=== PATIENT | female | born 1985 | race American Indian/Alaskan Native ===

== ENCOUNTER 2020-05-18 12:49 | Emergency (ER) | payer MEDICAID ==
--- NOTE | 2020-05-18 16:40 | Emergency Department Report ---
ED Female HPI - General Chief complaint: Urogenital-Female Stated complaint: YEAST INFECTION Time Seen by Provider: 05/18/20 13:32 Source: patient Mode of arrival: Ambulatory Limitations: No Limitations - History of Present Illness Initial comments: 35-year-old female presents to the emergency department with complaint that she may have a yeast infection. She states she has not had burning but has had foul-smelling discharge. She reports that is white thick. She denies any fevers chills or abdominal pain. She denies dysuria. - Related Data Previous Rx's Medication Instructions Recorded Last Taken Type metroNIDAZOLE [Flagyl TAB] 500 mg PO Q12HR 7 Days #14 tab 05/18/20 Unknown Rx Allergies Allergy/AdvReac Type Severity Reaction Status Date / Time No Known Allergies Allergy Unverified 05/18/20 12:54 ED Review of Systems ROS: Stated complaint: YEAST INFECTION Other details as noted in HPI Constitutional: denies: chills, fever Eyes: denies: eye discharge ENT: denies: ear pain, throat pain Respiratory: denies: cough Cardiovascular: denies: chest pain Endocrine: no symptoms reported Gastrointestinal: denies: abdominal pain, nausea, vomiting, diarrhea Genitourinary: discharge. denies: dysuria Musculoskeletal: denies: back pain Skin: denies: rash Neurological: denies: headache, weakness Psychiatric: denies: anxiety, depression Hematological/Lymphatic: denies: easy bleeding ED Past Medical Hx - Past Medical History Previous Medical History?: No - Surgical History Past Surgical History?: No - Medications Home Medications: Home Medications Medication Instructions Recorded Confirmed Last Taken Type metroNIDAZOLE [Flagyl TAB] 500 mg PO Q12HR 7 Days #14 tab 05/18/20 Unknown Rx ED Physical Exam - General Limitations: No Limitations General appearance: alert, in no apparent distress - Head Head exam: Present: atraumatic, normocephalic - Eye Eye exam: Present: normal appearance Pupils: Present: normal accommodation - ENT ENT exam: Present: normal exam - Neck Neck exam: Present: normal inspection - Respiratory Respiratory exam: Present: normal lung sounds bilaterally. Absent: respiratory distress, chest wall tenderness - Cardiovascular Cardiovascular Exam: Present: regular rate, normal rhythm, normal heart sounds - GI/Abdominal GI/Abdominal exam: Present: soft. Absent: distended, tenderness - Rectal Rectal exam: Present: deferred - External exam: Present: normal external exam Speculum exam: Present: vaginal discharge (Brownish, appears to be physiologic), vaginal bleeding - Extremities Exam Extremities exam: Present: normal inspection - Back Exam Back exam: Present: normal inspection - Neurological Exam Neurological exam: Present: alert, oriented X3 - Psychiatric Psychiatric exam: Present: normal affect - Skin Skin exam: Present: warm, dry, intact ED Course - Reevaluation(s) Reevaluation #1: 05/18/20 18:24 Pelvic exam showed some brownish discharge but patient had no tenderness. There was no purulent discharge suggestive of an STI. Wet prep does show some clue cells so we will treat for bacterial vaginosis and patient is to follow-up with primary care and [facility]. ED Medical Decision Making - Medical Decision Making 35-year-old female here with vaginal discharge. Concern for STI. She also completed considered that she could have a yeast infection. Plan for pelvic exam. Patient has no abdominal tenderness. I think that peptic inflammatory disease is unlikely. Pending patient exam will likely treat for STIs and discharge home. Critical care attestation.: If time is entered above; I have spent that time in minutes in the direct care of this critically ill patient, excluding procedure time. ED Disposition Clinical Impression: Vaginal discharge, Bacterial vaginosis Disposition: - TO HOME OR SELFCARE Is pt being admited?: No Does the pt Need Aspirin: No Condition: Stable Instructions: Bacterial Vaginosis (ED), Bacterial Vaginosis, [id number] Prescriptions: metroNIDAZOLE [Flagyl TAB] 500 mg PO Q12HR 7 Days #14 tab Referrals: PRIMARY CARE, [Primary Care Provider] - 3-5 Days Forms: STI Treatment and Prevention
[2020-05-18 16:57] LABS: Bilirubin,Urine NEG (Negative); Blood,Urine NEG (Negative); Color,Urine Yellow (Yellow); HCG Qualitative,Urine Negative (Negative); Mucus,Urine FEW /HPF; Protein,Urine <15 mg/dL mg/dL (Negative); Urobilinogen,Urine < 2.0 mg/dL (<2.0)
[2020-05-18 18:37] VITALS: BP 112/49
== END 2020-05-18 18:38 | disposition home or self-care (01) ==
LOC: ED 12:49
DX: N76.0 Acute vaginitis (principal); B96.89 Other specified bacterial agents as the cause of diseases classified elsewhere; Z79.899 Other long term (current) drug therapy
CPT/HCPCS: 81001; 81025; 87210; 87591

== ENCOUNTER 2020-09-13 07:41 | Emergency (ER) | payer SELFPAY ==
[2020-09-13 08:54] VITALS: BP 125/68
[2020-09-13] MEDS ORDERED: ACETAMINOPHEN 500 MG TAB PO ONE (09:03)
[2020-09-13] MEDS ORDERED: DICYCLOMINE 20 MG TAB PO ONE (09:04)
--- NOTE | 2020-09-13 09:07 | Emergency Department Report ---
ED General Adult HPI - General Chief complaint: Abdominal Pain Stated complaint: ABDOMINAL PAIN Time Seen by Provider: 09/13/20 09:01 Source: patient Mode of arrival: Ambulatory Limitations: No Limitations - History of Present Illness Initial comments: 35 y/o female pt w/ hx of tubal ligation and x3 presents to the emergency department with complaints of periumbilical abdominal pain starting yesterday. Patient states she has experienced similar abdominal pain on multiple occasions since her tubal ligation several years ago. Last bowel movement was 3 days ago. Patient states she has difficulty eating and sitting still because of the pain. Patient endorses alcohol use. LMP was four days ago. Denies fever, chills, nausea, vomiting, diarrhea, abnormal vaginal bleeding, rectal bleeding. Denies other complaints at this time. - Related Data Previous Rx's Medication Instructions Recorded Last Taken Type metroNIDAZOLE [Flagyl TAB] 500 mg PO Q12HR 7 Days #14 tab 05/18/20 Unknown Rx Dicyclomine [Bentyl] 20 mg PO QID #30 tablet 09/13/20 Unknown Rx Allergies Allergy/AdvReac Type Severity Reaction Status Date / Time No Known Allergies Allergy Unverified 05/18/20 12:54 ED Review of Systems ROS: Stated complaint: ABDOMINAL PAIN Other details as noted in HPI Other: GENERAL: Negative for fever, chills, weight change, anorexia, fatigue. ENT: Negative for ear pain, difficulty hearing, sore throat, nasal congestion, epistaxis. CARDIOVASCULAR: Negative for chest pain, palpitations, lower extremity swelling. PULMONARY: Negative for cough, dyspnea, wheezing, orthopnea, cyanosis. GASTROINTESTINAL: Positive for abdominal pain. MUSCULOSKELETAL: Negative for joint pain, joint swelling, myalgias, back pain, neck pain. NEUROLOGICAL: Negative for headache, seizure, syncope, paresthesias, weakness. INTEGUMENTARY: Negative for erythema, rash, diaphoresis, laceration, ecchymosis. HEMATOLOGICAL: Negative for hemoptysis, hematemesis, hematochezia, hematuria. PSYCHIATRIC: Negative for hallucinations, suicidal ideation, homicidal ideation, anxiety, depression. ED Past Medical Hx - Past Medical History Previous Medical History?: No - Surgical History Past Surgical History?: Yes Additional Surgical History: 3 , TL - Medications Home Medications: Home Medications Medication Instructions Recorded Confirmed Last Taken Type metroNIDAZOLE [Flagyl TAB] 500 mg PO Q12HR 7 Days #14 tab 05/18/20 Unknown Rx Dicyclomine [Bentyl] 20 mg PO QID #30 tablet 09/13/20 Unknown Rx ED Physical Exam - General Limitations: No Limitations - Other Other exam information: General: Awake and alert. No acute distress. Head: Atraumatic, normocephalic. Eyes: EOMI. Pupils are equal and round. Normal sclera and conjunctiva. ENT: Oral mucosa is moist. Normal pharyngeal exam. Neck: Supple. No lymphadenopathy. Pulmonary: No respiratory distress. Clear to auscultation bilaterally. Cardiac: Regular rate and rhythm. Pulses are palpable and equal bilaterally. No lower extremity cyanosis or edema. Skin: Warm and dry. No rashes. Abdomen: Soft, non-protuberant. Diffuse abdominal tenderness without guarding, rigidity, or rebound. Bowel sounds are normal. No organomegaly or masses noted. Tenderness does not localize to McBurney's point. Saini sign is negative. Back: Normal alignment. No CVA tenderness. Extremities: Symmetrical. Full range of motion intact. Neurological: Alert and oriented, appropriately interactive, no focal deficits. Psych: Cooperative. Appropriate mood and affect. Speech is evenly metered. Thoughts are logically construed. ED Course Vital Signs 09/13/20 08:47 Temperature 98.3 F Pulse Rate 65 Respiratory 18 Rate Blood Pressure 125/68 O2 Sat by Pulse 100 Oximetry ED Medical Decision Making - Lab Data Result diagrams: 09/13/20 09:26 09/13/20 09:26 - Medical Decision Making Differential diagnosis including but not limited to: appendicitis, cholecystitis, pancreatitis, , pyelonephritis, ovarian cyst/torsion, urinary tract infection, peptic ulcer disease On reevaluation, patient remains stable. Repeat abdominal exam is benign. She is tolerating oral intake without difficulty. No fever or vomiting in the emergency department. Patient has been very ambulatory over the course of her emergency department evaluation. Please see nursing note for details. Her vital signs are stable and her labs are unremarkable. She has been experiencing similar pain since her tubal ligation several years ago. There are no signs of peritonitis on examination. There is no clinical indication for further diagnostic work-up on an emergent basis at this time. Patient will be discharged home with appropriate analgesics and referral to local primary care provider for close outpatient follow-up. Patient expressed understanding and is agreeable to plan of care. Strict return precautions provided. Specifically, signs/symptoms of appendicitis warranting return to the emergency department were discussed with the patient, who expressed understanding. Repeat exam is unremarkable and benign. History, exam, diagnostic testing, and current condition do not suggest worrisome pathology to warrant further testing, continued ED treatment, admission, or surgical evaluation at this point. Given the low probability of a significant medical illness, it would be more likely to result in harm than benefit to perform further testing at this stage. Discussed findings, presumptive diagnosis, need for follow-up and specific signs/symptoms that should prompt immediate return to the emergency department. Instructions were explained in detail to the patient in addition to giving written discharge information. Patient expressed understanding and was given the opportunity to ask questions, all of which were satisfactorily answered prior to discharge home. Critical care attestation.: If time is entered above; I have spent that time in minutes in the direct care of this critically ill patient, excluding procedure time. ED Disposition Clinical Impression: Nonspecific abdominal pain Disposition: TO HOME OR SELFCARE Is pt being admited?: No Does the pt Need Aspirin: No Condition: Stable Instructions: Abdominal Pain, Adult, [id number], Abdominal Pain (ED) Additional Instructions: Take Tylenol every 4 hours as needed for pain. Take Bentyl as directed for pain. Rest. Drink plenty of fluids. Follow-up with primary care provider this week. Call Tuesday to schedule an appointment. Return to the emergency department immediately for new or worsening symptoms. Specifically, return to the emergency department immediately for fever, nausea, vomiting, rectal bleeding, worsening abdominal pain, and/or if the pain migrates to the right lower area of your abdomen. Prescriptions: Dicyclomine [Bentyl] 20 mg PO QID #30 tablet Referrals: JEREMY HILL MD [Staff Physician] - 3-5 Days [facility] [Outside] - 3-5 Days [facility] [Outside] - 3-5 Days [facility] [Outside] - 3-5 Days Time of Disposition: 11:07
[2020-09-13 09:59] LABS: Basophils % (Auto) 0.5 % (0.0-1.8); Eosinophils # (Auto) 0.1 K/mm3 (0.0-0.4); Hematocrit 36.2 % (30.3-42.9); Hemoglobin 12.2 gm/dl (10.1-14.3); Lymphocytes # (Auto) 1.9 K/mm3 (1.2-5.4); Lymphocytes % (Auto) 32.9 % (13.4-35.0); Mean Corpuscular HGB Conc 34 % (30-34); Mean Corpuscular Volume 94 fl (79-97); Monocytes # (Auto) 0.5 K/mm3 (0.0-0.8); Monocytes % (Auto) 9.2 % (0.0-7.3); Platelet Count 207 K/mm3 (140-440); Red Blood Count 3.87 M/mm3 (3.65-5.03); Red Cell Distribution Width 13.7 % (13.2-15.2)
[2020-09-13 10:00] LABS: Alanine Aminotransferase 7 units/L (7-56); Albumin 4.2 g/dL (3.9-5); Blood Urea Nitrogen 11 mg/dL (7-17); Calcium 8.6 mg/dL (8.4-10.2); Hemolysis Index 8
[2020-09-13 10:02] LABS: BUN/Creatinine Ratio 18
[2020-09-13 10:33] LABS: Bilirubin,Urine NEG (Negative); Blood,Urine MOD (Negative); Color,Urine Yellow (Yellow); Mucus,Urine 3+ /HPF; Protein,Urine <15 mg/dL mg/dL (Negative); Urobilinogen,Urine < 2.0 mg/dL (<2.0); WBC,Urine < 1.0 /HPF (0.0-6.0)
== END 2020-09-13 11:49 | disposition home or self-care (01) ==
LOC: ED 07:41
DX: R10.33 Periumbilical pain (principal); Z79.899 Other long term (current) drug therapy; Z98.890 Other specified postprocedural states; Z98.51 Tubal ligation status
CPT/HCPCS: 36415; 80053; 81001; 83690; 83735; 84703; 85025

== ENCOUNTER 2021-06-09 16:42 | Emergency (ER) | payer MEDICAID ==
[2021-06-09 18:32] VITALS: BP 105/38
[2021-06-09 19:17] LABS: Basophils % (Auto) 0.8 % (0.0-1.8); Eosinophils # (Auto) 0.1 K/mm3 (0.0-0.4); Eosinophils % (Auto) 1.4 % (0.0-4.3); Hematocrit 35.9 % (30.3-42.9); Hemoglobin 11.8 gm/dl (10.1-14.3); Lymphocytes # (Auto) 2.4 K/mm3 (1.2-5.4); Lymphocytes % (Auto) 40.5 % (13.4-35.0); Mean Corpuscular HGB Conc 33 % (30-34); Mean Corpuscular Volume 93 fl (79-97); Monocytes # (Auto) 0.6 K/mm3 (0.0-0.8); Platelet Count 212 K/mm3 (140-440); Red Blood Count 3.86 M/mm3 (3.65-5.03); Red Cell Distribution Width 13.2 % (13.2-15.2)
[2021-06-09 19:41] LABS: Alanine Aminotransferase 10 units/L (7-56); Albumin 4.5 g/dL (3.9-5); Blood Urea Nitrogen 10 mg/dL (7-17); Calcium 9.4 mg/dL (8.4-10.2); Hemolysis Index 12
[2021-06-09 19:42] LABS: BUN/Creatinine Ratio 17
[2021-06-09 20:49] LABS: Bilirubin,Urine NEG (Negative); Blood,Urine NEG (Negative); Color,Urine Yellow (Yellow); Protein,Urine <15 mg/dL mg/dL (Negative); Urobilinogen,Urine < 2.0 mg/dL (<2.0); WBC,Urine < 1.0 /HPF (0.0-6.0)
[2021-06-09] MEDS ORDERED: ONDANSETRON 4 MG ODT TAB PO ONE (20:55)
[2021-06-09] MEDS ORDERED: DICYCLOMINE 20 MG TAB PO ONE (20:55)
--- NOTE | 2021-06-09 21:01 | Emergency Department Report ---
ED Abdominal Pain HPI - General Chief Complaint: Abdominal Pain Stated Complaint: ABD PAINS Time Seen by Provider: 06/09/21 20:51 Source: patient Mode of arrival: Ambulatory Limitations: No Limitations - History of Present Illness Initial Comments: Patient 36-year-old female who presents for left flank pain radiating to left lower quadrant x5 days. Patient denies fevers or chills patient has no dysuria frequency and urgency. Patient denies vaginal discharge no vaginal bleeding. Last menstrual cycle 1 week ago. Patient notes nausea no vomiting. Patient is tolerating p.o. intake. Patient states she started to have diarrhea this a.m. Patient denies relieving factors. Symptoms are exacerbated by activity and movement. MD Complaint: abdominal pain, flank pain - Related Data Previous Rx's Medication Instructions Recorded Last Taken Type metroNIDAZOLE [Flagyl TAB] 500 mg PO Q12HR 7 Days #14 tab 05/18/20 Unknown Rx Dicyclomine [Bentyl] 20 mg PO QID #30 tablet 09/13/20 Unknown Rx Dicyclomine [Bentyl] 10 mg PO QID PRN #20 capsule 06/09/21 Unknown Rx Naproxen 500 mg PO BID PRN #30 06/09/21 Unknown Rx Ondansetron [Zofran Odt] 4 mg PO Q8HR PRN #12 tab.rapdis 06/09/21 Unknown Rx Allergies Allergy/AdvReac Type Severity Reaction Status Date / Time No Known Allergies Allergy Verified 06/09/21 18:31 ED Review of Systems ROS: Stated complaint: ABD PAINS Other details as noted in HPI Constitutional: denies: chills, fever Eyes: denies: eye pain, eye discharge, vision change ENT: denies: ear pain, throat pain Respiratory: denies: cough, shortness of breath, wheezing Cardiovascular: denies: chest pain, palpitations Endocrine: no symptoms reported Gastrointestinal: abdominal pain, nausea, diarrhea. denies: vomiting, constipation, hematemesis, hematochezia Genitourinary: urgency, dysuria, frequency. denies: hematuria, discharge, abnormal menses Musculoskeletal: back pain (left flank ). denies: joint swelling, arthralgia Skin: denies: rash, lesions Neurological: denies: headache, weakness, paresthesias, vertigo Psychiatric: denies: anxiety, depression Hematological/Lymphatic: as per HPI ED Past Medical Hx - Surgical History Additional Surgical History: 3 , TL - Medications Home Medications: Home Medications Medication Instructions Recorded Confirmed Last Taken Type metroNIDAZOLE [Flagyl TAB] 500 mg PO Q12HR 7 Days #14 tab 05/18/20 Unknown Rx Dicyclomine [Bentyl] 20 mg PO QID #30 tablet 09/13/20 Unknown Rx Dicyclomine [Bentyl] 10 mg PO QID PRN #20 capsule 06/09/21 Unknown Rx Naproxen 500 mg PO BID PRN #30 06/09/21 Unknown Rx Ondansetron [Zofran Odt] 4 mg PO Q8HR PRN #12 tab.rapdis 06/09/21 Unknown Rx ED Physical Exam - General Limitations: No Limitations General appearance: alert, in no apparent distress - Head Head exam: Present: atraumatic, normocephalic - Eye Eye exam: Present: normal appearance, EOMI Pupils: Present: normal accommodation - ENT ENT exam: Present: mucous membranes moist - Neck Neck exam: Present: normal inspection, full ROM. Absent: tenderness - Respiratory Respiratory exam: Present: normal lung sounds bilaterally. Absent: respiratory distress, wheezes, stridor - Cardiovascular Cardiovascular Exam: Present: regular rate, normal rhythm, normal heart sounds. Absent: systolic murmur, diastolic murmur, rubs, gallop - GI/Abdominal GI/Abdominal exam: Present: soft, tenderness (LLQ , L flank ), normal bowel sounds. Absent: distended, guarding, rebound, rigid, bruit, hernia - Rectal Rectal exam: Present: deferred - Extremities Exam Extremities exam: Present: normal inspection, full ROM, normal capillary refill. Absent: tenderness - Back Exam Back exam: Present: normal inspection, full ROM, CVA tenderness (L). Absent: CVA tenderness (R) - Neurological Exam Neurological exam: Present: alert, oriented X3, CN II-XII intact, normal gait - Psychiatric Psychiatric exam: Present: normal affect, normal mood - Skin Skin exam: Present: warm, dry, intact, normal color. Absent: rash ED Course Vital Signs 06/09/21 18:28 Temperature 98.3 F Pulse Rate 71 Respiratory 14 Rate Blood Pressure 105/38 [Right] O2 Sat by Pulse 100 Oximetry ED Medical Decision Making - Lab Data Result diagrams: 06/09/21 18:55 06/09/21 18:55 Labs 06/09/21 06/09/21 06/09/21 18:55 18:55 18:55 WBC 5.9 RBC 3.86 Hgb 11.8 Hct 35.9 MCV 93 MCH 31 MCHC 33 RDW 13.2 Plt Count 212 Lymph % (Auto) 40.5 H [place] % (Auto) 10.0 H Eos % (Auto) 1.4 Baso % (Auto) 0.8 Lymph # (Auto) 2.4 [place] # (Auto) 0.6 Eos # (Auto) 0.1 Baso # (Auto) 0.0 Seg Neutrophils % 47.3 Seg Neutrophils # 2.8 Sodium 140 Potassium 4.9 Chloride 102.9 Carbon Dioxide 24 Anion Gap 18 BUN 10 Creatinine 0.6 Estimated GFR > 60 BUN/Creatinine Ratio 17 Glucose 80 Calcium 9.4 Total Bilirubin 0.30 AST 14 ALT 10 Alkaline Phosphatase 81 Total Protein 7.8 Albumin 4.5 Albumin/Globulin Ratio 1.4 Lipase 19 HCG, Qual Negative Urine Color Urine Turbidity Urine pH Ur Specific [place] Urine Protein Urine Glucose (UA) Urine Ketones Urine Blood Urine Nitrite Urine Bilirubin Urine Urobilinogen Ur Leukocyte Esterase Urine WBC (Auto) Urine RBC (Auto) 06/09/21 Unknown WBC RBC Hgb Hct MCV MCH MCHC RDW Plt Count Lymph % (Auto) [place] % (Auto) Eos % (Auto) Baso % (Auto) Lymph # (Auto) [place] # (Auto) Eos # (Auto) Baso # (Auto) Seg Neutrophils % Seg Neutrophils # Sodium Potassium Chloride Carbon Dioxide Anion Gap BUN Creatinine Estimated GFR BUN/Creatinine Ratio Glucose Calcium Total Bilirubin AST ALT Alkaline Phosphatase Total Protein Albumin Albumin/Globulin Ratio Lipase HCG, Qual Urine Color Yellow Urine Turbidity Clear Urine pH 7.0 Ur Specific [place] 1.015 Urine Protein <15 mg/dl Urine Glucose (UA) Neg Urine Ketones Neg Urine Blood Neg Urine Nitrite Neg Urine Bilirubin Neg Urine Urobilinogen < 2.0 Ur Leukocyte Esterase Neg Urine WBC (Auto) < 1.0 Urine RBC (Auto) < 1.0 - Radiology Data Radiology results: report reviewed, image reviewed ABDOMEN 1 VIEW(S) INDICATION / CLINICAL INFORMATION: Abdominal pain and diarrhea. COMPARISON: None. FINDINGS: TUBES / LINES: None. BOWEL GAS PATTERN: No significant abnormality. ADDITIONAL FINDINGS: No significant additional findings. IMPRESSION: 1. No significant abnormality. Signer Name: Baron Khan MD Signed: 06/09/2021 9:12 PM Workstation Name: [id number] Transcribed By: SB Dictated By: BARON KHAN MD Electronically Authenticated By: BARON KHAN MD Signed Date/Time: 06/09/212111 DD/ 10 TD/TT: - Medical Decision Making KUB is normal, labs are normal, there is no fevers no chills patient is tolerating p.o. intake at this time without symptoms. Plan DC to home prescriptions, follow-up with your doctor in 2 to 3 days. Continue to hydrate. Laxative of choice as needed. Return to emergency department should symptoms worsen. Critical care attestation.: If time is entered above; I have spent that time in minutes in the direct care of this critically ill patient, excluding procedure time. ED Disposition Clinical Impression: Abdominal pain Qualifiers: Abdominal location: lower abdomen, unspecified Qualified Code(s): R10.30 - Lower abdominal pain, unspecified Disposition: HOME / SELF CARE / HOMELESS Is pt being admited?: No Does the pt Need Aspirin: No Condition: Stable Instructions: Abdominal Pain (ED), Abdominal Pain, Adult Additional Instructions: Take medication as prescribed, follow-up with your doctor in 2 to 3 days. Hydrate as directed. Laxative of choice as needed. Prescriptions: Dicyclomine [Bentyl] 10 mg PO QID PRN #20 capsule PRN Reason: abdominal spasm Naproxen 500 mg PO BID PRN #30 PRN Reason: Pain Ondansetron [Zofran Odt] 4 mg PO Q8HR PRN #12 tab.rapdis PRN Reason: Nausea Referrals: PRIMARY CARE, [Primary Care Provider] - 3-5 Days QUINN KATE MD [Staff Physician] - 3-5 Days Forms: Work/School Release Form(ED) Time of Disposition: 23:21
[2021-06-09 21:03] LABS: RBC,Urine < 1.0 /HPF (0.0-6.0)
--- NOTE | 2021-06-09 21:17 | XRay Report ---
ABDOMEN 1 VIEW(S) INDICATION / CLINICAL INFORMATION: Abdominal pain and diarrhea. COMPARISON: None. FINDINGS: TUBES / LINES: None. BOWEL GAS PATTERN: No significant abnormality. ADDITIONAL FINDINGS: No significant additional findings. IMPRESSION: 1. No significant abnormality. Signer Name: Baron Garnica MD Signed: 06/09/2021 9:12 PM Workstation Name: [id number]
== END 2021-06-10 00:10 | disposition home or self-care (01) ==
LOC: ED 16:42
DX: R10.30 Lower abdominal pain, unspecified (principal)
CPT/HCPCS: 36415; 74018; 80053; 81001; 83690; 84703; 85025; 99284; J3490; Q0162

== ENCOUNTER 2021-07-29 07:02 | Emergency (ER) | payer MEDICAID ==
[2021-07-29] MEDS ORDERED: SODIUM CHLORIDE 0.9% 1000 ML 1,000 ML IV ONE (10:45)
[2021-07-29] MEDS ORDERED: KETOROLAC 30 MG/1 ML INJ IV ONE (10:45)
--- NOTE | 2021-07-29 11:02 | Emergency Department Report ---
ED Back Pain/Injury HPI - General Chief Complaint: Abdominal Pain Stated Complaint: BODYACHE AND ABDMINAL PAIN Time Seen by Provider: 07/29/21 10:09 Source: patient Limitations: No Limitations - History of Present Illness Initial Comments: 36-year-old female presents to the ER today with complaints of right flank pain/upper lumbar pain. She states that the pain started 2 days ago. She denies any particular injury or strenuous activity. She states that it seems to be worse with movement but she is also been having generalized body aches, intermittent lower abdominal pain, urinary odor and frequency. She states that she vomited 2 days ago and this has since resolved. She did have a mild case of diarrhea but this has also since resolved. She also reports decreased taste and smell. She denies any URI symptoms or cough. She denies any fever or chills. She denies dysuria or hematuria. Her last menstrual cycle was in June. She is status post tubal ligation. She denies any known ill contacts or recent travel. She is not vaccinated against COVID-19. MD Complaint: back pain -: days(s) (2) - Related Data Previous Rx's Medication Instructions Recorded Last Taken Type Ketorolac [Toradol] 10 mg PO Q6H PRN #20 tab 07/29/21 Unknown Rx Allergies Allergy/AdvReac Type Severity Reaction Status Date / Time No Known Allergies Allergy Verified 07/29/21 11:13 ED Review of Systems ROS: Stated complaint: BODYACHE AND ABDMINAL PAIN Other details as noted in HPI Comment: All other systems reviewed and negative Constitutional: denies: chills, fever Eyes: denies: eye pain, eye discharge, vision change ENT: denies: ear pain, throat pain Respiratory: denies: cough, shortness of breath, SOB with exertion, SOB at rest, wheezing Cardiovascular: denies: chest pain, palpitations, dyspnea on exertion, edema, syncope, paroxysmal nocturnal dyspnea Endocrine: no symptoms reported. denies: excessive sweating Gastrointestinal: abdominal pain, nausea, vomiting, diarrhea. denies: constipation, hematemesis, hematochezia Genitourinary: frequency, other (Urinary odor). denies: urgency, dysuria, hematuria, discharge, abnormal menses, dyspareunia Musculoskeletal: back pain, myalgia Skin: denies: rash, lesions Neurological: denies: headache, weakness, paresthesias Psychiatric: denies: anxiety, depression Hematological/Lymphatic: denies: easy bleeding, easy bruising ED Past Medical Hx - Surgical History Additional Surgical History: 3 , TL - Medications Home Medications: Home Medications Medication Instructions Recorded Confirmed Last Taken Type Ketorolac [Toradol] 10 mg PO Q6H PRN #20 tab 07/29/21 Unknown Rx ED Physical Exam - General Limitations: No Limitations General appearance: alert, in no apparent distress - Head Head exam: Present: atraumatic, normocephalic, normal inspection - Eye Eye exam: Present: normal appearance, PERRL, EOMI Pupils: Present: normal accommodation - Neck Neck exam: Present: normal inspection, full ROM. Absent: meningismus - Respiratory Respiratory exam: Present: normal lung sounds bilaterally. Absent: respiratory distress, wheezes, rales, rhonchi - Cardiovascular Cardiovascular Exam: Present: regular rate, normal rhythm, normal heart sounds - GI/Abdominal GI/Abdominal exam: Present: soft, tenderness (Mild diffuse abdominal tenderness without guarding or rebound.). Absent: distended, guarding, rebound - Back Exam Back exam: Present: normal inspection, full ROM, CVA tenderness (R), paraspinal tenderness (Right upper lumbar area) - Neurological Exam Neurological exam: Present: alert, oriented X3, CN II-XII intact, normal gait - Psychiatric Psychiatric exam: Present: normal affect, normal mood - Skin Skin exam: Present: intact ED Course Vital Signs 07/29/21 07/29/21 07:35 11:15 Temperature 97.9 F Pulse Rate 52 L 46 L Respiratory 16 18 Rate Blood Pressure 111/39 114/57 [Left] O2 Sat by Pulse 98 100 Oximetry ED Medical Decision Making - Lab Data Result diagrams: 07/29/21 12:22 07/29/21 12:21 - Medical Decision Making 1414: Patient reports feeling better after IV fluids and meds. Labs reviewed, --CMP and CBC unremarkable. Urinalysis does not suggest UTI and she has no gross blood, and only 2 RBCs. hCG is normal. Patient currently sitting up on the side of the bed, scrolling on her phone. She is not in any acute distress. She is currently not toxic or ill-appearing. She appears to be feeling better. Abdominal exam is benign. Her vital signs are stable. She is neurologically intact. At this time I do not see any indication for any additional testing including CT abdomen pelvis. Discussed all results with patient. Informed her symptoms could be viral in nature. I do recommend she gets a COVID-19 test but patient is adamant that she does not have Covid because she has had it before in the past and she did not have any of the symptoms. She be given medications for pain. Recommend lots of fluids and follow-up with her primary care doctor. She understands if she gets worse to return to the ER. Patient was stable at time of discharge. Critical care attestation.: If time is entered above; I have spent that time in minutes in the direct care of this critically ill patient, excluding procedure time. ED Disposition Clinical Impression: Back pain, Myalgia, Viral illness Disposition: HOME / SELF CARE / HOMELESS Is pt being admited?: No Does the pt Need Aspirin: No Condition: Stable Instructions: Acute Back Pain, Adult, Musculoskeletal Pain, Viral Illness, Adult, Abdominal Pain (ED) Additional Instructions: I recommend taking the Toradol as prescribed to help with any pain. Your symptoms are concerning for flulike/viral illness. I know you feel like your symptoms are not related to Covid because your symptoms feel different from when you had Covid the first time, but symptomology can be different with different strains. And so I do recommend that you consider it and get a test at a local urgent care pharmacy or drive-through clinic. In the meantime drink lots of fluids. Take a multivitamin include vitamin C and zinc and vitamin D. Follow-up with your primary care doctor. Return to the ER if your symptoms changes or worsens in any way. Prescriptions: Ketorolac [Toradol] 10 mg PO Q6H PRN #20 tab PRN Reason: Pain Referrals: QUINN KATE MD [Staff Physician] - 3-5 Days Forms: Work/School Release Form(ED) Time of Disposition: 13:35
[2021-07-29 11:24] VITALS: BP 114/57
[2021-07-29 11:45] LABS: HCG Qualitative,Urine Negative (Negative)
[2021-07-29 11:53] LABS: Bacteria,Urine 1+ /HPF (Negative); Bilirubin,Urine NEG (Negative); Blood,Urine NEG (Negative); Color,Urine Yellow (Yellow); Mucus,Urine 3+ /HPF
[2021-07-29 12:55] LABS: Basophils % (Auto) 0.5 % (0.0-1.8); Eosinophils # (Auto) 0.2 K/mm3 (0.0-0.4); Eosinophils % (Auto) 3.4 % (0.0-4.3); Hematocrit 32.4 % (30.3-42.9); Hemoglobin 11.1 gm/dl (10.1-14.3); Lymphocytes # (Auto) 2.1 K/mm3 (1.2-5.4); Lymphocytes % (Auto) 44.3 % (13.4-35.0); Mean Corpuscular HGB Conc 35 % (30-34); Mean Corpuscular Volume 92 fl (79-97); Monocytes # (Auto) 0.4 K/mm3 (0.0-0.8); Platelet Count 229 K/mm3 (140-440); Red Blood Count 3.52 M/mm3 (3.65-5.03)
[2021-07-29 13:18] LABS: Alanine Aminotransferase 8 units/L (7-56); Albumin 4.4 g/dL (3.9-5); Blood Urea Nitrogen 7 mg/dL (7-17); Calcium 8.5 mg/dL (8.4-10.2); Hemolysis Index 1
[2021-07-29 13:20] LABS: BUN/Creatinine Ratio 14
== END 2021-07-29 14:32 | disposition home or self-care (01) ==
LOC: ED 07:02
DX: M54.9 Dorsalgia, unspecified (principal); M79.10 Myalgia, unspecified site; B34.9 Viral infection, unspecified
CPT/HCPCS: 36415; 80053; 81001; 81025; 85025; 96361; 96374; 99283; J1885; J7030; Q0162